=== PATIENT | male | born 1930 | race Caucasian/White ===

== ENCOUNTER 2017-09-18 06:34 | Emergency (ER) | payer MEDICARE ==
--- NOTE | 2017-09-18 07:11 | PD ---
HPI Chief Complaint: Code Blue Time Seen by Provider: 07:00 Travel History International Travel<30 days: No Contact w/Intl Traveler<30days: No Traveled to known affect area: No History of Present Illness HPI The patient is an 86-year-old male that apparently was found unresponsive at a correction. When the ambulance arrived he apparently had some respirations but no pulse. At the correction apparently they had a brief return of circulation but ambulance personnel found nothing but PEA. ACLS protocol was begun around 712. When the patient arrived here he had been under ACLS protocol for about 25 minutes. The patient had a [employer] put in in the field and was being bagged. Ultimately, after about 40-45 minutes of unsuccessful ACLS protocol the patient had an ultrasound of the heart which showed absolutely no movement. There were some agonal complexes which did not result in any heart movement whatsoever. At this point the code was terminated. PFSH Social History Tobacco Use: No Review of Systems Except as stated in HPI: all other systems reviewed are Neg Physical Exam Narrative The patient was pulseless and apneic with no vital signs. He was pale Data Data Last Documented VS Vital Signs Date Time Temp Pulse Resp B/P (MAP) Pulse Ox O2 Delivery O2 Flow Rate FiO2 09/18/17 06:35 15.00 100 MDM Medical Decision Making Medical Screen Exam Complete: Yes Emergency Medical Condition: Yes Medical Record Reviewed: Yes Differential Diagnosis Sudden cardiac , PEA, myocardial infarction, electrolyte disorder-unlikely , hypoxemia. Congestive heart failure Narrative Course The patient's primary care physician, Dr. Timmons was called and he will sign the certificate. The patient appears to have sudden cardiac . He was short of breath at the correction and may have exhibited some failure/ hypoxemia prior to the cardiac arrest. Diagnosis Primary Impression: Sudden cardiac Disposition: 20 Condition: Nile Browne MD Sep 18, 2017 07:11
== END 2017-09-18 08:18 | disposition expired ==
LOC: PHED 06:34
DX: I46.9 Cardiac arrest, cause unspecified (principal)
CPT/HCPCS: 92950